=== PATIENT | male | born 1945 | race Caucasian/White ===

== ENCOUNTER → 2017-07-10 | Day surgery (SDC) | payer OTHER ==
[~2017-07-10] MED LIST: CHOLESTYRAMINE P4 GM PO; HYOSCYAMINE0.125 M1 SL; IPRAT-ALBUT 0.5-3 ML IH; LINZESS145 MCG PO; POLY119PG PO; TERAZOSIN HCL1 M1 PO; TERAZOSIN HCL5 MG PO; TRAM1TAB98 PO; ULTRACET PO; VITAMIN B125000 MCG PO; VITAMIN D10000 UNIT PO
== END | disposition home or self-care (01) ==
LOC: ADM 07-04 09:00 → CIR.AMB 06:45
DX: K62.3 Rectal prolapse (principal)

== ENCOUNTER 2018-05-07 06:20 | Day surgery (SDC) | payer OTHER ==
[~2018-05-07 06:20] MED LIST changes: +ALBUTEROL1.25 MG/3 IH; +PREVASTATIN PO; +SINGULAIR10 MG PO; +THEOPHYLLINE400 MG PO
[2018-05-07] MEDS ORDERED: KEFLEX500 MG PO (10:41)
[2018-05-07] MEDS ORDERED: ULTRACET PO (10:42)
== END 2018-05-07 13:50 | disposition home or self-care (01) ==
LOC: CIR.AMB 06:20
DX: R15.9 Full incontinence of feces (principal)
CPT/HCPCS: 64581; C1778

== ENCOUNTER 2018-05-21 08:35 | Day surgery (SDC) | payer OTHER ==
[~2018-05-21 08:35] MED LIST changes: +KEFLEX500 MG PO
[2018-05-21] MEDS ORDERED: SYMBICORT 16010.2 GM IH (09:37)
== END 2018-05-21 15:15 | disposition home or self-care (01) ==
LOC: CIR.AMB 08:35
DX: R15.9 Full incontinence of feces (principal)
CPT/HCPCS: 64590; C1767

== ENCOUNTER 2020-01-20 06:46 | Day surgery (SDC) | payer OTHER ==
[~2020-01-20 06:46] MED LIST changes: +SYMBICORT 16010.2 GM IH; +TAMS0.4C PO; +[UNRECOGNIZED DRUG - OTHER] PO
[2020-01-20] MEDS ORDERED: PERCOCET 5-3251 EACH PO (14:03)
[2020-01-20] MEDS ORDERED: COLACE100 MG PO (14:04)
[2020-01-20] MEDS ORDERED: NEURONTIN600 M1 PO (14:04)
== END 2020-01-20 19:30 | disposition home or self-care (01) ==
LOC: CIR.AMB 06:46
PROVIDERS: ATTEND Surgery
DX: K40.90 Unilateral inguinal hernia, without obstruction or gangrene, not specified as recurrent (principal); D17.5 Benign lipomatous neoplasm of intra-abdominal organs; Z20.828 Contact with and (suspected) exposure to other viral communicable diseases